=== PATIENT | male | born 1990 | race Caucasian/White ===

== ENCOUNTER 2018-04-09 17:01 | Emergency (ER) | payer BC ==
[2018-04-09 17:17] VITALS: BP 117/67
[2018-04-09] MEDS ORDERED: Meclizine TAB* 12.5 MG PO ONE (17:29)
--- NOTE | 2018-04-09 17:38 | UC ---
Dizzy HPI HPI Summary: 27-year-old male comes to clinic today with a chief complaint of dizziness. She hours ago at work he turned his head suddenly and he had a spinning dizziness. He get this set stay for about 15 minutes and the dizziness went away. When he moves his head quickly the dizziness returns. He was also accompanied by an onset of pressure in the ears. Pressures about a 4 out of 10. No diffuse headache. No weakness or numbness no difficulty with vision or speech. He's had upper respiratory tract infection symptoms for about 4 days. No prior history of this type of dizziness. - History Of Current Complaint Chief Complaint: UCGeneralIllness Stated Complaint: DIZZINESS Time Seen by Provider: 04/09/18 17:11 Pain Intensity: 4 - Allergies/Home Medications Allergies/Adverse Reactions: Allergies Allergy/AdvReac Type Severity Reaction Status Date / Time No Known Allergies Allergy Verified 04/09/18 17:11 PMH/Surg Hx/FS Hx/Imm Hx Previously Healthy: Yes - Surgical History Surgical History: None - Family History Known Family History: Positive: Non-Contributory - Social History Alcohol Use: Weekly Alcohol Amount: 1-2/week Substance Use Type: None Smoking Status (MU): Never Smoked Tobacco - Immunization History Most Recent Tetanus Shot: UTD Review of Systems All Other Systems Reviewed And Are Negative: Yes Constitutional: Positive: Other - DIZZINESS Skin: Positive: Negative Eyes: Positive: Negative ENT: Positive: Ear Ache, Nasal Discharge, Sinus Congestion Respiratory: Positive: Negative Cardiovascular: Positive: Negative Gastrointestinal: Positive: Negative Motor: Positive: Negative Neurovascular: Positive: Negative Musculoskeletal: Positive: Negative Neurological: Positive: Other - DIZZINESS. Negative: Weakness, Paresthesia, Numbness Psychological: Positive: Negative Is Patient Immunocompromised?: No Physical Exam Triage Information Reviewed: Yes Appearance: Well-Appearing, No Pain Distress, Well-Nourished Vital Signs: Initial Vital Signs Temp 98.5 F 04/09/18 17:11 Pulse 70 04/09/18 17:11 Resp 16 04/09/18 17:11 BP 117/67 04/09/18 17:11 Pulse Ox 98 04/09/18 17:11 Vital Signs Reviewed: Yes Eye Exam: Normal Eyes: Positive: Conjunctiva Clear, Other: - No nystagmus ENT: Positive: Pharyngeal erythema, Nasal congestion, TM bulging - RIGHT Neck exam: Normal Neck: Positive: Supple Respiratory: Positive: Lungs clear, Normal breath sounds, No respiratory distress Cardiovascular: Positive: RRR Musculoskeletal Exam: Normal Musculoskeletal: Positive: Strength Intact, ROM Intact Neurological Exam: Normal Neurological: Positive: Alert, Muscle Tone Normal, Other: - Normal finger to nose normal heel to trivedi. No facial droop no arm or leg weakness. Psychological Exam: Normal Psychological: Positive: Age Appropriate Behavior Skin Exam: Normal Dizzy Course/Dx - Course Course Of Treatment: Patient is recently had an upper respiratory tract infection symptoms and has a right TM that is bulging. Cause of the vertigo is most probably the upper respiratory tract infection. He describes a 4 out of 10 ear pressure. No generalized headache no sudden onset of severe headache. No difficulty with speech no weakness or numbness. There is no nystagmus. Normal finger-nose normal heel to trivedi. We'll treat the underlying infection with antibiotics and treat with meclizine for the vertigo. I discussed with the patient that if anything worsens he gets weakness numbness difficulty with speech he needs to get reevaluated right away. - Differential Dx/Diagnosis Provider Diagnosis: Vertigo, Serous otitis media Discharge - Sign-Out/Discharge Documenting (check all that apply): Patient Departure All imaging exams completed and their final reports reviewed: No Studies - Discharge Plan Condition: Stable Disposition: HOME Prescriptions: Amoxicillin/Clavulanate TAB* [Augmentin TAB 875*] 875 mg PO BID #20 tab Meclizine HCl [Motion Sickness Relief] 25 mg PO Q6H PRN #15 tablet PRN Reason: Dizziness Patient Education Materials: Vertigo (ED), Serous Otitis Media (ED) Referrals: Yossi Hernandez MD [Primary Care Provider] - Additional Instructions: FOLLOW UP WITH YOUR DOCTOR IF NOT COMPLETELY IMPROVED. GET RECHECKED FOR ANY WORSENING OF YOUR CONDITION; WEAKNESS, NUMBNESS, DIFFICULTY WITH VISION OR SPEECH OR QUESTIONS OR CONCERNS. - Billing Disposition and Condition Condition: STABLE Disposition: Home
== END 2018-04-09 17:51 | disposition home or self-care (01) ==
LOC: UCEAST 17:01
DX: R42 Dizziness and giddiness (principal); H65.90 Unspecified nonsuppurative otitis media, unspecified ear
CPT/HCPCS: 99202; A9270-GY; G0463

== ENCOUNTER 2018-11-29 11:28 | Emergency (ER) | payer BC ==
--- NOTE | 2018-11-29 11:42 | UC ---
Cardiac HPI - HPI Summary HPI Summary: Pt presents to ED reporting progressive sharp Left chest pain since 7am - radiates straight to back + sob No n/v/d no fever, chills mild diaphoresis no h/o similar pt states pain worse with deep breath. no analgesia taken pt with a h/o stress induces abd pain - this is different - pt does have increased recent stress. No analgesia taken. 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 Onset/Duration: Gradual Onset Initial Severity: Moderate Current Severity: Severe - Allergy/Home Medications Allergies/Adverse Reactions: Allergies Allergy/AdvReac Type Severity Reaction Status Date / Time No Known Allergies Allergy Verified 11/29/18 11:42 Home Medications: Home Medications NK [No Home Medications Reported] 11/29/18 [History Confirmed 11/29/18] PMH/Surg Hx/FS Hx/Imm Hx Previously Healthy: Yes - Surgical History Surgical History: None - Family History Known Family History: Positive: Other - grandparents PE, uncle [place] 35 - Social History Occupation: Employed Full-time Lives: With Family Alcohol Use: Weekly Alcohol Amount: 1-2/week Substance Use Type: None Smoking Status (MU): Never Smoked Tobacco - Immunization History Most Recent Tetanus Shot: UTD Review of Systems All Other Systems Reviewed And Are Negative: Yes Constitutional: Positive: Negative Skin: Positive: Other - diaphoresis Eyes: Positive: Negative ENT: Positive: Negative Respiratory: Positive: Shortness Of Breath Cardiovascular: Positive: Chest Pain Genitourinary: Positive: Negative Motor: Positive: Negative Physical Exam - Summary Physical Exam Summary: Vital Signs Reviewed: Yes A+Ox3, holding left chest wall, appears uncomfortable Eyes: Conjunctiva Clear, EDILMA. 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 no analgesia increased wiht deep breath radiates to back VSS pt appears uncomfortable EKG no diagnostic differential includes PE, PTX, dissection recommend to ED after prolonged discussion with pt and mom - agreement with plan IV asa morphine oxygen tele spoke with PRATEEK Villafana in ED - Clinical Impression Provider Diagnosis: Chest pain Discharge - Sign-Out/Discharge Documenting (check all that apply): Patient Departure All imaging exams completed and their final reports reviewed: No Studies - Discharge Plan Condition: Good Disposition: TRANS HIGHER LVL OF CARE FAC Referrals: Sherif Narvaez MD [Primary Care Provider] - - Billing Disposition and Condition Condition: GOOD Disposition: Trans Higher Lvl of Care Fac
[2018-11-29] MEDS ORDERED: Aspirin 81 mg CHEW TAB* 81 MG TAB.CHEW PO ONE (12:00)
[2018-11-29] MEDS ORDERED: NS 0.9% 1000 ML** 1,000 ML IV ONE (12:00)
[2018-11-29] MEDS ORDERED: Morphine 10 MG/ML VIAL (1 ml) IV ONE (12:01)
[2018-11-29 12:21] VITALS: BP 128/74
== END 2018-11-29 12:23 | disposition short-term general hospital (02) ==
LOC: UCEAST 11:28
DX: R07.89 Other chest pain (principal)
CPT/HCPCS: 93005; 96361; 96374; 99213; A9270-GY; G0463; J2270

== ENCOUNTER 2018-11-29 12:36 | Emergency (ER) | payer BC ==
[2018-11-29] MEDS ORDERED: Al Hydrox/Mg Hydrox/Simet LIQ* 30 ML UDC PO ONE (12:54)
[2018-11-29] MEDS ORDERED: Pantoprazole IV* 40 MG IV ONE (12:54)
[2018-11-29] MEDS ORDERED: Lidocaine 2% VISCOUS* 15 ML UDC PO ONE (12:54)
--- NOTE | 2018-11-29 13:25 | ED ---
HPI Chest Pain - HPI Summary HPI Summary: 28 year male presents with chest pain since this morning. He states it is a dull ache in the middle of his chest. He did lift something heavy. He states that over the past week she's had epigastric pain and vomiting. He states the vomiting has resolved. He states he did feel nauseous. He states did have short of breath. pain radiates to back. He states he does not radiates to jaw or shoulder. Does radiate to the back. Never had this before. denies any drug usage. Has no medical conditions. Has family history of cardiac disease and PEs. No recent travel. No pain or swelling in calf muscle. Does not smoke. - History of Current Complaint Chief Complaint: EDChestPainROMI Time Seen by Provider: 11/29/18 12:45 Pain Intensity: 3 - Allergy/Home Medications Allergies/Adverse Reactions: Allergies Allergy/AdvReac Type Severity Reaction Status Date / Time No Known Allergies Allergy Verified 11/29/18 11:42 PMH/Surg Hx/FS Hx/Imm Hx Endocrine/Hematology History: Denies: Hx Anticoagulant Therapy Respiratory History: Reports: Hx Asthma - as an Infectious Disease History: No Infectious Disease History: Denies: History Other Infectious Disease, Traveled Outside the [place] in Last 30 Days - Family History Known Family History: Positive: Cardiac Disease, Blood Disorder - Social History Alcohol Use: Weekly Alcohol Amount: 1-2/week Substance Use Type: Reports: None Smoking Status (MU): Never Smoked Tobacco Review of Systems Negative: Fever Positive: Chest Pain Positive: Shortness Of Breath. Negative: Cough Positive: Abdominal Pain, Vomiting - resolved, Nausea All Other Systems Reviewed And Are Negative: Yes Physical Exam Triage Information Reviewed: Yes Vital Signs On Initial Exam: Initial Vitals Temp Pulse Resp BP Pulse Ox 98 F 71 18 123/78 100 11/29/18 12:39 11/29/18 12:39 11/29/18 12:39 11/29/18 12:39 11/29/18 12:39 Vital Signs Reviewed: Yes Appearance: Positive: Well-Appearing Skin: Positive: Warm, Dry Head/Face: Positive: Normal Head/Face Inspection Eyes: Positive: Normal, EOMI, EDILMA, Conjunctiva Clear ENT: Positive: Normal ENT inspection, Pharynx normal, TMs normal Respiratory/Lung Sounds: Positive: Clear to Auscultation, Breath Sounds Present Cardiovascular: Positive: Normal, RRR Abdomen Description: Positive: Soft, Other: - tenderness in epigastric region Bowel Sounds: Positive: Present Musculoskeletal: Positive: Normal Neurological: Positive: Normal Psychiatric: Positive: Normal Diagnostics - Vital Signs Vital Signs Temp Pulse Resp BP Pulse Ox 11/29/18 12:47 100 11/29/18 12:46 73 14 118/73 98 11/29/18 12:42 18 11/29/18 12:39 98 F 71 18 123/78 100 - Laboratory Result Diagrams: 11/29/18 13:19 11/29/18 13:19 Lab Statement: Any lab studies that have been ordered have been reviewed, and results considered in the medical decision making process. - Radiology chest Radiology Interpretation Completed By: Radiologist Summary of Radiographic Findings: IMPRESSION: No active cardiopulmonary disease is noted. - EKG No standard instances Cardiac Rate: NL EKG Rhythm: Sinus Rhythm EKG Comparison: No Significant Change Summary of EKG Findings: sinus rhythm, early repolization Re-Evaluation - Re-Evaluation First Eval Re-Evaluation Time: 14:37 Change: Improved Comment: feeling better after GI cocktail Chest Pain Course/Dx - Course Course Of Treatment: 28 year male presents with chest pain since this morning. He states it is a dull ache in the middle of his chest. He did lift something heavy. He states that over the past week she's had epigastric pain and vomiting. He states the vomiting has resolved. He states he did feel nauseous. He states did have short of breath. pain radiates to back. He states he does not radiates to jaw or shoulder. Does radiate to the back. Never had this before. denies any drug usage. Has no medical conditions. Has family history of cardiac disease and PEs. No recent travel. No pain or swelling in calf muscle. Does not smoke. On exam has tenderness in epigastric region and over his chest wall. Lungs clear to ausculation. Heart regular rhythm. EKG shows sinus rhythm with early repolarization. He was given morphine and aspirin at urgent care had improvement. EKG sinus rhythm. chest xray normal. gave cocktail and feeling better. wbc normal. troponin zero. d- dimer neg. crp normal discussed with recent vomiting hx likely is gastritis causing symptoms. will place on course of omperazole. told follow up with primary. patient understand and agrees with plan. - Chest Pain Differential Diagnosis/HQI/PQRI: Chest Wall, GI Disease, Pulmonary Embolism - Diagnoses Provider Diagnoses: Epigastric pain, Atypical chest pain Discharge - Sign-Out/Discharge Documenting (check all that apply): Patient Departure Patient Received Moderate/Deep Sedation with Procedure: No - Discharge Plan Condition: Good Disposition: HOME Patient Education Materials: Epigastric Pain (ED) Referrals: Sherif Narvaez MD [Primary Care Provider] - Additional Instructions: take omeprazole daily Take tyenlol or ibuprofen as needed for pain every 6 hours follow up with primary Return to ED if develop any new or worsening symptoms - Billing Disposition and Condition Condition: GOOD Disposition: Home
[2018-11-29 13:36] LABS: ABS Lymphocytes 0.8 10^3/ul (1.0-4.8); ABS Monocytes 0.6 10^3/ul (0-0.8); ABS Neutrophils 4.3 10^3/ul (1.5-7.7); Eosinophil % 0.4 %; Hematocrit 34 % (42-52); Lymphocyte % 13.5 %; Mean Corpuscular HGB Conc 33 g/dL (31-36); Mean Corpuscular Hemoglobin 25 pg (27-31); Mean Corpuscular Volume 77 fL (80-94); Mean Platelet Volume 7.6 fL (7.4-10.4); Platelet Count 191 10^3/uL (150-450); Red Blood Count 4.41 10^6 /uL (4.18-5.48); Red Cell Distribution Width 15 % (10-15); White Blood Count 5.7 10^3/uL (3.5-10.8)
[2018-11-29 13:58] LABS: Albumin 3.4 g/dL (3.2-5.2); Albumin/Globulin Ratio 1.7 (1-3); BUN/Creatinine Ratio 15.6 (8-20); C Reactive Protein 1.3 mg/L (<8.01); Calcium 7.8 mg/dL (8.6-10.3); EGFR African American 145.6 (>60); EGFR Non-African American 120.3 (>60); Potassium 3.7 mmol/L (3.5-5.0); Total Bilirubin 0.5 mg/dL (0.2-1.0); Total Protein 5.4 g/dL (6.4-8.9)
[2018-11-29] MEDS ORDERED: Ketorolac INJ* 30 MG/ML 1 ML VIAL IV PUSH ONE (14:36)
[2018-11-29 14:44] VITALS: BP 121/75
== END 2018-11-29 14:53 | disposition home or self-care (01) ==
LOC: ED 12:36
DX: R07.89 Other chest pain (principal); R10.13 Epigastric pain
CPT/HCPCS: 36415; 71046; 80053; 83605; 84484; 85025; 85379; 86140; 93005; 96374; 96375; 99283; A9270-GY; J1885